=== PATIENT | male | born 1955 | race Caucasian/White ===

== ENCOUNTER 2018-10-14 04:39 | Emergency (ER) | payer BC ==
[~2018-10-14] VITALS: Ht 193 cm; Wt 104.3 kg
[2018-10-14] MEDS ORDERED: KETOROLAC TROMETH 60MG/2ML VIAL IM ONE (07:30)
[2018-10-14 07:49] VITALS: BP 153/98
== END 2018-10-14 07:54 | disposition home or self-care (01) ==
LOC: ER 04:39 → EDBD 04:39 → ER 07:54
DX: M25.511 Pain in right shoulder (principal); Z88.0 Allergy status to penicillin; W19.XXXA Unspecified fall, initial encounter; Y93.89 Activity, other specified; Y99.8 Other external cause status; Y92.89 Other specified places as the place of occurrence of the external cause
CPT/HCPCS: 73030; 96372; 99283; J1885